=== PATIENT | female | born 1975 | race Asian ===

== ENCOUNTER 2018-01-18 07:31 | Emergency (ER) | payer SELFPAY ==
[~2018-01-18] VITALS: Ht 162.6 cm; Wt 95.5 kg
[2018-01-18] MEDS ORDERED: NITROGLYCERIN 0.4MG TABLET SL SL PRN (08:00)
[2018-01-18] MEDS ORDERED: SODIUM CHLORIDE 0.9% 500 ML IV ONE (08:00)
[2018-01-18] MEDS ORDERED: ASPIRIN 81MG TABLET PO STA (08:00)
[2018-01-18] MEDS ORDERED: ONDANSETRON HCL 4MG/2ML VIAL IV STA (08:00)
[2018-01-18 08:22] LABS: BASOPHILS % 0.7 % (0.0-2.0); EOSINOPHILS % 4.4 % (0.0-5.0); HEMATOCRIT. 30.5 % (36.0-48.0); HEMOGLOBIN. 9.6 g/dL (12.0-16.0); MEAN CORPUSCULAR HEMOGLOBIN 21.4 pg (28.0-32.0); MEAN CORPUSCULAR VOLUME 68.1 fL (81.0-99.0); MEAN PLATELET VOLUME 7.3 fl (7.4-10.4); MONOCYTES % 6.6 % (2.0-8.0); NEUTROPHILS % 67.3 % (40.0-76.0); PLATELET 314 x1000/uL (130-400); RED BLOOD CELL COUNT 4.47 mill/uL (4.2-5.4)
[2018-01-18 08:28] LABS: CHLORIDE 105 mEq/L (98-107)
[2018-01-18 08:33] LABS: D-DIMER 2.45 mg/L FEU (<0.50); PARTIAL THROMBOPLASTIN TIME 31.9 sec (23.4-31.0); PROTHROMBIN TIME 10.5 sec (9.4-11.6)
[2018-01-18 08:42] LABS: HCG SCREEN NEGATIVE
[2018-01-18] MEDS ORDERED: METOPROLOL TARTRATE 5MG/5ML VIAL IV ONE ×2 (10:00→10:45)
[2018-01-18] MEDS ORDERED: MORPHINE SULFATE 4 MG/ML CPJ (NOT FOR IM USE) IV ONE ×2 (10:00→10:45)
[2018-01-18] MEDS ORDERED: ONDANSETRON HCL 4MG/2ML VIAL IV ONE (10:00)
[2018-01-18 10:15] LABS: PLATELET ESTIMATE NORMAL
[2018-01-18] MEDS ORDERED: IOHEXOL-350 100 ML BOTTLE ONE (10:55)
[2018-01-18 12:39] VITALS: BP 138/58
== END 2018-01-18 12:55 | disposition short-term general hospital (02) ==
LOC: ER 07:50 → CANBEDREQ 12:11 → ER 12:55
DX: I71.00 Dissection of unspecified site of aorta (principal); R07.2 Precordial pain; R06.02 Shortness of breath; I10 Essential (primary) hypertension; Z98.890 Other specified postprocedural states; Z79.82 Long term (current) use of aspirin
CPT/HCPCS: 36415; 71045; 71275; 80053; 83690; 83880; 84484; 84703; 85025; 85379; 85610; 85730; 93005; 96361; 96374; 96375; 96376; 99285; J2270; J2405; J3490; J7030; J7040; Q9967; Z7610

== ENCOUNTER 2018-10-06 21:39 | Emergency (ER) | payer MEDICAID ==
[~2018-10-06] VITALS: Ht 162.6 cm; Wt 84.0 kg
[2018-10-06 22:42] VITALS: BP 153/76
== END 2018-10-07 01:00 | disposition left against medical advice (07) ==
LOC: ER 21:39
DX: R68.89 Other general symptoms and signs (principal); Z53.21 Procedure and treatment not carried out due to patient leaving prior to being seen by health care provider

== ENCOUNTER 2021-05-30 21:15 | Emergency (ER) | payer MEDICAID, OTHER ==
[~2021-05-30] VITALS: Ht 162.6 cm; Wt 92.0 kg
[2021-05-30 21:29] VITALS: BP 164/92
[2021-05-30] MEDS ORDERED: HYDR453.3 TP (22:08)
[2021-05-30] MEDS ORDERED: DIPH25CA83 MT (22:08)
[2021-05-30] MEDS ORDERED: P20 MT (22:08)
== END 2021-05-30 22:59 | disposition home or self-care (01) ==
LOC: ER 21:15
DX: L25.9 Unspecified contact dermatitis, unspecified cause (principal)
CPT/HCPCS: 99283